=== PATIENT | male | born 1975 | race African-American/Black ===

== ENCOUNTER 2024-02-22 14:17 | Emergency (ER) | payer SELFPAY | END 2024-02-22 19:21 | disposition left against medical advice (07) | LOC: ED 14:17 | DX: R10.9 Unspecified abdominal pain (principal); Z53.21 Procedure and treatment not carried out due to patient leaving prior to being seen by health care provider ==

== ENCOUNTER → 2024-02-22 | Emergency (ER) | payer SELFPAY ==
[~2024-02-22] VITALS: Ht 180.3 cm; Wt 81.6 kg
== END ==
LOC: ED 15:15
DX: R10.9 Unspecified abdominal pain (principal); Z53.21 Procedure and treatment not carried out due to patient leaving prior to being seen by health care provider